=== PATIENT | female | born 1965 | race Caucasian/White ===

== ENCOUNTER 2017-01-21 11:48 | Emergency (ER) | payer BC, MEDICARE ==
[2017-01-21 17:54] LABS: HEMOGLOBIN 14.1 gm/dl (12.3-15.3); RED BLOOD COUNT 4.55 M/UL (4.00-5.10); WHITE BLOOD COUNT 7.4 K/UL (4.5-11.0)
== END 2017-01-21 19:45 | disposition home or self-care (01) ==
LOC: ER1 11:48
PROVIDERS: Specialist/Technologist Athletic Trainer
DX: R10.31 Right lower quadrant pain (principal); R11.2 Nausea with vomiting, unspecified; R68.83 Chills (without fever); Z90.49 Acquired absence of other specified parts of digestive tract
CPT/HCPCS: 36415; 81001; 83605; 83690; 85025; 87086; 96374; 96375; 99284; J2270; J2405; J7050; Q9962

== ENCOUNTER 2017-01-26 18:16 | Emergency (ER) | payer BC, MEDICARE | END 2017-01-26 21:45 | disposition home or self-care (01) | LOC: ER1 18:16 | DX: S46.912A Strain of unspecified muscle, fascia and tendon at shoulder and upper arm level, left arm, initial encounter (principal); X58.XXXA Exposure to other specified factors, initial encounter; G89.29 Other chronic pain; Z85.3 Personal history of malignant neoplasm of breast; Z90.49 Acquired absence of other specified parts of digestive tract; Z79.891 Long term (current) use of opiate analgesic | CPT/HCPCS: 29105; 73030; 99283 ==

== ENCOUNTER 2017-03-19 22:04 | Emergency (ER) | payer BC, MEDICARE ==
[2017-03-19 22:38] LABS: HEMOGLOBIN 13.9 gm/dl (12.3-15.3); RED BLOOD COUNT 4.5 M/UL (4.00-5.10); WHITE BLOOD COUNT 8.9 K/UL (4.5-11.0)
== END 2017-03-20 00:42 | disposition home or self-care (01) ==
LOC: ER1 22:04
PROVIDERS: Family Medicine
DX: N20.1 Calculus of ureter (principal); N23 Unspecified renal colic; Z87.442 Personal history of urinary calculi
CPT/HCPCS: 36415; 80053; 81001; 82150; 83690; 85025; 87086; 96374; 96375; 99284; J1885; J2270; J2405

== ENCOUNTER 2021-04-27 22:16 | Emergency (ER) | payer BC, MEDICARE ==
[~2021-04-27 22:16] MED LIST: AMITRIPTYLINE H10 MG PO; BUSPAR 5MG TABLE5 MG PO; CALCIUM500 MG PO; CARAFATE1 GM/10 ML PO; FLAGYL500 MG PO; GRALISE300 MG PO; NAPROSYN500 MG PO; NORCO 7.5-3251 EACH PO; PANTOPRAZOLE SO40 MG PO; PERCOCET 5/325 T1 EA PO; PERCOCET 7.5-31 EACH PO; PROTONIX40 MG PO; PROVENTIL HFA6.7 GM INH; TIZANIDINE HCL4 M1 PO; VANCOMYCIN HCL125 MG PO; Voltaren Gel 1 % TOP
[2021-04-28 00:24] LABS: RED BLOOD COUNT 4.86 M/UL (4.00-5.10); WHITE BLOOD COUNT 8.8 K/UL (4.5-11.0)
== END 2021-04-28 00:40 | disposition home or self-care (01) ==
LOC: ER1 22:16 → CDU 23:41 → ER1 23:41
PROVIDERS: Surgery
DX: T18.128A Food in esophagus causing other injury, initial encounter (principal); Z90.710 Acquired absence of both cervix and uterus
CPT/HCPCS: 80053; 85025; 93005; 99285

== ENCOUNTER 2021-05-03 20:58 | Emergency (ER) | payer BC, MEDICARE | END 2021-05-04 04:00 | disposition home or self-care (01) | LOC: ER1 20:58 | DX: T18.128A Food in esophagus causing other injury, initial encounter (principal); K56.41 Fecal impaction; Z90.710 Acquired absence of both cervix and uterus; Z90.49 Acquired absence of other specified parts of digestive tract; W45.8XXA Other foreign body or object entering through skin, initial encounter; Z20.822 Contact with and (suspected) exposure to COVID-19 | CPT/HCPCS: 71045; 99285; J0330; J1100; J2001; J2405; J2704; J7040; U0002 ==